=== PATIENT | female | born 1960 | race Two or more races ===

== ENCOUNTER 2017-01-13 12:16 | Emergency (ER) | payer MEDICAID, OTHER ==
[~2017-01-13] VITALS: Ht 157.5 cm; Wt 99.8 kg
[2017-01-13 12:44] VITALS: BP 140/79
--- NOTE | 2017-01-13 13:03 | Emergency Room Report ---
History of Present Illness General Chief Complaint: Lower Extremity Injury Source: Patient (DIAN MARTIN) Present Illness HPI 56-year-old female accompanied by daughter complains of right foot pain for 3 weeks. States that she had stubbed her right heat no into a door frame and since then has had increasing pain in the lateral aspect of her right foot that is worse with ambulation. States that she has taken ibuprofen without improvement over the past 3 weeks her last ibuprofen dosage was at 11 AM today. Patient denies any numbness, tingling, pressure, paralysis, cyanosis, bruising, loss of sensation, or loss of range of motion. (DIAN MARTIN.A.) Allergies: Coded Allergies: No Known Allergies (Unverified , 01/13/17) Patient History Past Medical History: see triage record Past Surgical History: none Pertinent Family History: none Last Menstrual Period: na Immunizations: UTD Reviewed Nursing Documentation: PMH: Agreed, PSxH: Agreed (DIAN MARTIN) Nursing Documentation-PMH Past Medical History: No History, Except For Hx Hypertension: Yes ([email or web address]) Review of Systems All Other Systems: negative except mentioned in HPI ([email or web address]) Physical Exam Vital Signs Date Time Temp Pulse Resp B/P (MAP) Pulse Ox O2 Delivery O2 Flow Rate FiO2 01/13/17 12:21 99.0 63 18 140/79 99 Room Air Sp02 EP Interpretation: reviewed, normal General Appearance: no apparent distress, alert, GCS 15, non-toxic Head: normocephalic, atraumatic Eyes: bilateral eye normal inspection ENT: normal ENT inspection Respiratory: normal breath sounds, no respiratory distress Cardiovascular #1: normal peripheral pulses, normal capillary refill Musculoskeletal: back normal, normal range of motion, swelling - 5th digit, other - antalgic gait, tender - right 5th digit and base of 5th metatarsal Neurologic: alert, oriented x3, responsive, motor strength/tone normal, sensory intact, speech normal Psychiatric: mood/affect normal Skin: normal color, no rash, warm/dry, well hydrated ([email or web address]) Medical Decision Making PA Attestation Dr. Tenorio is my supervising physician with whom patient management has been discussed with. (DIAN MARTIN) ER Course Pt. presents to the ED c/o foot pain Ddx considered but are not limited to fracture, contusion, dislocation, sprain, strain Vital signs: are WNL, pt. is afebrile H&PE are most consistent with contusion of right 5th digit ORDERS: XR Foot ED INTERVENTIONS: [place] 5. DISCHARGE: At this time pt. is stable for d/c to home. Will provide printed patient care instructions, and any necessary prescriptions. Care plan and follow up instructions have been discussed with the patient prior to discharge. (DIAN MARTIN) Other X-Ray Diagnostic Results Other X-Ray Diagnostic Results : X-Ray ordered: Right Foot # of Views/Limited Vs Complete: 3 View Indication: Pain EP Interpretation: Yes Interpretation: no dislocation, no soft tissue swelling, no fractures Impression: No acute disease Interpreting ER Provider: Dr. Tenorio (DIAN MARTINANick) Other X-Ray Diagnostic Results : Interpreting ER Provider: Scribe documentation reviewed by me and is accurate, Ravi Tenorio MD. (Ravi Tenorio M.D.) Last Vital Signs Date Time Temp Pulse Resp B/P (MAP) Pulse Ox O2 Delivery O2 Flow Rate FiO2 01/13/17 12:44 99.0 63 18 140/79 99 Room Air Status: unchanged (DIAN MARTIN P.A.) Disposition: HOME, SELF-CARE Condition: Stable Scripts Naproxen* (NAPROXEN*) 500 Mg Tablet.dr 500 MG ORAL TWICE A DAY for 10 Days, #20 TAB Prov: DIAN MARTIN.A. 01/13/17 Acetaminophen With Codeine (T#4) (TYLENOL #4 TAB*) Y Tab 1 TAB ORAL Q8H Y for For Pain, #12 TAB 0 Refills Prov: DIAN MARTIN.A. 01/13/17 Patient Instructions: Foot Contusion, How to Rainer Tape Additional Instructions: Take medication as directed. Patient advised to follow up with primary care provider within next 5-7 days if no improvement with RICE and NSAIDs. Patient is to go to the ER immediately if they experience any pain that is worsening and not responding to medication, excess swelling, pressure feeling, loss of color, cyanosis, paralysis, or numbness. DIAN MARTIN Jan 13, 2017 13:03 Ravi Tenorio M.D. Jan 17, 2017 04:14
[2017-01-13] MEDS ORDERED: Norco 5mg/325mg tab ORAL ONE (13:15)
[2017-01-13] MEDS ORDERED: NAPROXEN500 M1 ORAL (13:39)
[2017-01-13] MEDS ORDERED: ACETAMINOPHEN-1 EAC2 ORAL (13:39)
[2017-01-13 13:50] VITALS: BP 140/79
--- NOTE | 2017-01-14 10:33 | Diagnostic Imaging Report ---
Indication: PAIN Technique: 3 views right foot Comparison: none Findings: No acute fractures. No dislocations. There is mild metatarsus adductus. Impression: No acute bony trauma This agrees with the preliminary interpretation provided overnight by [facility] service.
== END 2017-01-13 13:50 | disposition home or self-care (01) ==
LOC: EMR 13:15
DX: M79.671 Pain in right foot (principal); I10 Essential (primary) hypertension
CPT/HCPCS: 99284

== ENCOUNTER 2017-06-29 15:44 | Emergency (ER) | payer MEDICAID ==
[~2017-06-29] VITALS: Ht 157.5 cm; Wt 86.2 kg
[~2017-06-29 15:44] MED LIST: ACETAMINOPHEN-1 EAC2 ORAL; NAPROXEN500 M1 ORAL
[2017-06-29 16:04] VITALS: BP 157/93
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
[2017-06-29] MEDS ORDERED: Ketorolac 30mg Inj IM ONE (16:45)
[2017-06-29] MEDS ORDERED: METHOCARBAMOL500 MG ORAL (16:58)
[2017-06-29] MEDS ORDERED: IBUPROFEN600 MG ORAL (16:58)
[2017-06-29] MEDS ORDERED: LIDOCAINE700 M1 TP (16:58)
[2017-06-29 17:41] VITALS: BP 157/93
--- NOTE | 2017-06-30 11:20 | Diagnostic Imaging Report ---
Indication: left shoulder pain Findings: 3 views of the left shoulder were obtained. Alignment of the left shoulder is normal. No acute fracture is identified. Soft tissues are unremarkable. Impression: No acute injury
== END 2017-06-29 17:42 | disposition home or self-care (01) ==
LOC: EMR 16:30
DX: M25.512 Pain in left shoulder (principal); M54.5 Low back pain; V43.12XA Car passenger injured in collision with other type car in nontraffic accident, initial encounter; Y93.9 Activity, unspecified; Y92.410 Unspecified street and highway as the place of occurrence of the external cause; I10 Essential (primary) hypertension
CPT/HCPCS: 73030; 96372; 99284; J1885